=== PATIENT | male | born 1955 | race Caucasian/White ===

== ENCOUNTER → 2024-04-13 | Outpatient (CLI) | payer MEDICARE ==
[~2024-04-13] MED LIST: AMBIEN 5MG TABLE5 MG PO; BYSTOLIC10 MG PO; COZAAR 50MG50 MG/TAB PO; DESYREL 50MG50 MG PO; EFFEXOR 75M75 MG/TAB PO; MOBIC15 MG PO; NATURE'S BLEND100 M2 PO; NORCO 325 MG-7.1 TAB PO; NORVASC 5MG5 MG/TAB PO; PRIL40 PO; ZESTRIL 10MG10 MG PO
== END ==
LOC: MHCPAIN 09:41
DX: M47.816 Spondylosis without myelopathy or radiculopathy, lumbar region (principal); M54.50 Low back pain, unspecified; M54.6 Pain in thoracic spine; I10 Essential (primary) hypertension; G89.29 Other chronic pain; Z96.82 Presence of neurostimulator
CPT/HCPCS: G0463

== ENCOUNTER → 2024-05-11 | Outpatient (CLI) | payer MEDICARE | LOC: MHCPAIN 08:43 | DX: M47.816 Spondylosis without myelopathy or radiculopathy, lumbar region (principal); M48.56XA Collapsed vertebra, not elsewhere classified, lumbar region, initial encounter for fracture; M51.369 Other intervertebral disc degeneration, lumbar region without mention of lumbar back pain or lower extremity pain | CPT/HCPCS: G0463 ==